=== PATIENT | male | born 1995 | race African-American/Black ===

== ENCOUNTER 2024-10-20 02:48 | Emergency (ER) | payer OTHER ==
[~2024-10-20] VITALS: Ht 182.9 cm; Wt 79.5 kg
[2024-10-20 04:22] VITALS: O2SAT 99
[2024-10-20] MEDS: CEFTRIAXONE SODIUM 500MG VIAL IM ONE (04:30)
[2024-10-20] MEDS ORDERED: DOXY100T2 MT (05:28)
[2024-10-20 05:42] LABS: CLARITY URINE CLOUDY (CLEAR); COLOR URINE YELLOW (YELLOW); GLUCOSE URINE NEGATIVE (NEGATIVE); KETONES URINE NEGATIVE (NEGATIVE); LEUKOCYTE ESTERASE URINE 3+ (NEGATIVE); NITRITE URINE NEGATIVE (NEGATIVE); OCCULT BLOOD URINE 1+ (NEGATIVE); PH URINE 6.5 (4.5-8.0); PROTEIN URINE NEGATIVE (NEGATIVE); SPECIFIC GRAVITY URINE 1.004 (1.005-1.030); UROBILINOGEN URINE 0.2 E.U./dL (0.2-1.0)
[2024-10-20 06:23] VITALS: BP 115/74; PULSE 79; RESP 16; TEMP 36.89184; O2SAT 99
[2024-10-20 06:26] LABS: WBC URINE TNTC /hpf (0-2)
[2024-10-20 06:27] LABS: RBC URINE 0-2 /hpf (0-2); SQUAMOUS EPITHELIAL CELL URINE NONE SEEN /lpf (RARE/1+)
[2024-10-20 06:28] LABS: BACTERIA URINE TRACE
[2024-10-20] MEDS ORDERED: CEFP100T8 MT (13:29)
[2024-10-22 08:07] LABS: CHLAMYDIA TRACHOMATIS NAA Negative (Negative); NEISSERIA GONORRHOEAE NAA Positive (Negative)
== END 2024-10-20 03:48 | disposition home or self-care (01) ==
LOC: ER 03:30
DX: N39.0 Urinary tract infection, site not specified (principal); Z11.3 Encounter for screening for infections with a predominantly sexual mode of transmission
CPT/HCPCS: 99283; 87491; 87591; 81003; 87086; 96372; J0696